=== PATIENT | female | born 1985 | race Caucasian/White ===

== ENCOUNTER 2024-06-25 13:05 | Outpatient (CLI) | payer OTHER ==
[2024-06-25] MEDS: LACTATED RINGERS 1,000 ML IV ONE (13:40)
[2024-06-25 14:34] VITALS: BP 122/81; PULSE 93; RESP 20; TEMP 97.6
[2024-06-25 14:48] LABS: Influenza A Detected (Not Detectd); Influenza B Not Detected (Not Detectd); RSV Not Detected (Not Detectd)
--- NOTE | 2024-06-25 14:53 | US ---
EXAMINATION TYPE: US OB limited DATE OF EXAM: 06/25/2024 COMPARISON: NONE CLINICAL INDICATION: Female, 38 years old with history of position and r/o adruption.; Hx aldo nal placenta per patient TECHNIQUE:: Transabdominal (TA) FINDINGS: GESTATIONAL AGE / DATING Physician Established: (36 weeks/2 days) EDC: 07/21/2024 No growth performed on today?s study per ordering physician SURVEY PLACENTA: Posterior right lateral PREVIA: Marginal Ultrasound evidence of abruption? No CERVICAL LENGTH (transabdominal: norm > 3.0cm): 3.2 cm PRESENTATION: Vertex HEART RATE: 130 bpm RHYTHM: Normal IMPRESSION: Posterior right lateral placenta with marginal previa. No evidence for placental abruptio n. [facility], , 06/25/2024 2:51 PM
== END 2024-06-25 15:20 | disposition home or self-care (01) ==
LOC: FBPOP 13:05
PROVIDERS: ATTEND Obstetrics & Gynecology
DX: Z53.9 Procedure and treatment not carried out, unspecified reason (principal)
CPT/HCPCS: 59025; 96360; 96361; 87636; 76815; G0463; 99214

== ENCOUNTER 2024-07-02 10:06 | Inpatient (IN) | payer OTHER ==
--- NOTE | 2024-07-02 11:18 | XR ---
EXAMINATION TYPE: XR chest 2V DATE OF EXAM: 07/02/2024 11:12 AM COMPARISON: None. CLINICAL INDICATION: Female, 38 years old with history of Cough,coughing, congestion, influenza A pos itive, 8 months , shielded TECHNIQUE: XR chest 2V view(s) obtained. FINDINGS: The heart size is normal. The pulmonary vasculature is normal. The lungs are clear. IMPRESSION: 1. No acute pulmonary process. [facility], , 07/02/2024 11:15 AM
[2024-07-02] MEDS ORDERED: METHYLERGONOVINE 0.2 MG/ML 1 ML AMP IM PRN (12:58)
[2024-07-02] MEDS ORDERED: miSOPROStoL 200 MCG TAB PO PRN (12:58)
[2024-07-02] MEDS ORDERED: CARBOPROST TROMETHAMINE 250 MCG/ML 1 ML AMP IM PRN (12:58)
[2024-07-02] MEDS ORDERED: TRANEXAMIC 1,000 MG/100ML-NACL 1,000 MG in EMPTY BAG 1 BAG IV PRN (12:58)
[2024-07-02] MEDS ORDERED: OXYTOCIN 10 UNIT/ML 1 ML VIAL IM PRN (12:58)
[2024-07-02] MEDS ORDERED: OXYTOCIN 30 UNITS/500 ML NS 30 UNIT in SALINE 1 500ML.BAG IV SCH (13:00)
[2024-07-02 13:13] LABS: Basophils % (A) 0 %; Eosinophils # (A) 0.1 k/uL (0-0.7); Eosinophils % (A) 0 %; HCT 37.6 % (34.0-46.0); HGB 12.7 gm/dL (11.4-16.0); Lymphocytes # (A) 1.2 k/uL (1.0-4.8); Lymphocytes % (A) 6 %; MCH 28.1 pg (25.0-35.0); MCHC 33.8 g/dL (31.0-37.0); MCV 83.3 fL (80.0-100.0); Mean Platelet Volume 9.5; Monocytes # (A) 0.9 k/uL (0-1.0); Monocytes % (A) 4 %; Neutrophils # (A) 19.6 k/uL (1.3-7.7); Neutrophils % (A) 89 %; Platelet Count 368 k/uL (150-450); Poikilocytosis Slight; RBC 4.51 m/uL (3.80-5.40)
[2024-07-02] MEDS: CITRIC ACID-SODIUM CITRATE 15 ML CUP PO ONE (13:13)
[2024-07-02] MEDS: LACTATED RINGERS 1,000 ML IV SCH ×2 (13:13→22:24)
[2024-07-02] MEDS ORDERED: ONDANSETRON 4 MG/2 ML VIAL ONE (13:34)
[2024-07-02] MEDS ORDERED: PHENYLEPHRINE-0.9% NACL SYG 1,000 MCG/10 ML SYRINGE ONE (13:34)
[2024-07-02] MEDS ORDERED: OXYTOCIN 30 UNITS/500 ML NS BAG IV ONE (13:34)
[2024-07-02] MEDS ORDERED: MORPHINE SULFATE (PF) 0.3 MG/0.3 ML SYR ONE (13:34)
--- NOTE | 2024-07-02 14:21 | P.OP ---
Date of Procedure: 07/02/24 Preoperative Diagnosis: IUP at 37-2/7 weeks, marginal placenta previa, spontaneous rupture membranes Postoperative Diagnosis: Same Procedure(s) Performed: Primary low-transverse section Anesthesia: spinal Surgeon: Odilia Garcia [facility] Pre Need Consultant #1: Norma Tillman Estimated Blood Loss (ml): 793 IV fluids (ml): 800 Urine output (ml): 100 (Yellow, clear) Pathology: other (Placenta) Condition: stable Disposition: observation Indications for Procedure: Spontaneous rupture of membranes with known placenta previa Operative Findings: Male infant delivered at 1354, weight of 6 pounds 13 ounces Description of Procedure: The patient was prepped and draped in the usual fashion after spinal anesthesia was administered by anesthesia department. A Pfannenstiel incision was made and extended of the abdominal cavity without difficulty. The bladder peritoneum was elevated and incised and reflected distally. A 2 cm incision was made in the transverse plane of the lower uterine segment to enter the uterus at which time clear fluid was noted. The incision was extended in both directions using the bandage scissors. The head was encountered within the field and delivered up and through the incision where the nose and mouth were thoroughly suctioned. Remainder of the infant was delivered onto the surgical field where the cord was doubly clamped, cut, and the was passed for resuscitative measures with weight above. The placenta was delivered manually, intact, and was grossly normal with a grossly normal three-vessel cord. The uterus was exteriorized and the interior cavity of the uterus swept of any remaining placental and membranous fragments with a laparotomy sponge. The margins of the incision were grasped with Allis clamps and the incision closed in 2 layers. First layer was a running locking layer of 0 Vicryl from margin to margin followed by a second layer of imbricating 0 Vicryl from margin to margin. Any small points of bleeding were then made hemostatic with the Bovie. Once hemostasis was achieved, the posterior cul-de-sac was suctioned with a guard and the uterine and ovarian findings are as noted above. The uterus was replaced within the abdominal cavity and the gutters swept of any remaining blood fluid or clot. Small amount of bleeding was noted on the left-hand side of the uterine incision therefore a xzajjm-mz-djman suture was used to obtain hemostasis. The incision was again reexamined and hemostasis was noted to be excellent. Once hemostasis was achieved the parietal peritoneum was loosely reapproximated. The layer of muscles were examined and made hemostatic with the Bovie. Attention was then turned to the fascia which was closed with 0 Vicryl from 1 lateral edge to the other in a running fashion. The subcutaneous tissues were irrigated, made hemostatic with the Bovie, and reapproximated with a running stitch of 30 . The skin was reapproximated with 4-0 Vicryl. Estimated blood loss for the case was approximately 793 mL. All sponge instrument and needle counts are correct. There were no complications. The patient tolerated the procedure well and proceeded to the recovery room in stable condition. Both mother and infant are resting comfortably in recovery.
[2024-07-02] MEDS ORDERED: SIMETHICONE 80 MG CHEWABLE PO PRN (16:38)
[2024-07-02] MEDS ORDERED: ONDANSETRON 4 MG/2 ML VIAL IVP PRN (16:38)
[2024-07-02] MEDS ORDERED: METOCLOPRAMIDE 5 MG/ML 2 ML VIAL IVP PRN (16:38)
[2024-07-02] MEDS ORDERED: diphenhydrAMINE 25 MG CAP PO PRN (16:38)
[2024-07-02] MEDS ORDERED: NALOXONE 0.4 MG/ML 1 ML VIAL IV PRN (16:38)
[2024-07-02] MEDS ORDERED: ZOLPIDEM 5 MG TAB PO PRN (16:38)
[2024-07-02] MEDS ORDERED: diphenhydrAMINE 50 MG/ML 1 ML VIAL IVP PRN ×2 (16:38)
[2024-07-02] MEDS ORDERED: diphenhydrAMINE 50 MG CAP PO PRN (16:38)
[2024-07-02] MEDS: SENNOSIDES-DOCUSATE SODIUM 1 EACH TAB PO SCH (20:17)
[2024-07-02] MEDS: ACETAMINOPHEN IV (For NPO) 1,000 MG in EMPTY BAG 1 BAG IVPB ONE (20:18)
[2024-07-02] MEDS: ACETAMINOPHEN TAB 500 MG TAB PO SCH (20:19)
[2024-07-03] MEDS: IBUPROFEN 800 MG TAB PO SCH (00:01)
[2024-07-03] MEDS: ACETAMINOPHEN TAB 500 MG TAB PO SCH (03:56)
[2024-07-03 06:45] LABS: Basophils % (A) 0 %; Eosinophils # (A) 0.1 k/uL (0-0.7); Eosinophils % (A) 0 %; HCT 35.1 % (34.0-46.0); HGB 11.6 gm/dL (11.4-16.0); Lymphocytes # (A) 2.3 k/uL (1.0-4.8); Lymphocytes % (A) 12 %; MCH 27.7 pg (25.0-35.0); Mean Platelet Volume 9.5; Monocytes % (A) 5 %; Neutrophils # (A) 15.6 k/uL (1.3-7.7); Neutrophils % (A) 81 %; Platelet Count 360 k/uL (150-450); Poikilocytosis Slight; RBC 4.17 m/uL (3.80-5.40); WBC 19.4 k/uL (3.8-10.6)
[2024-07-03] MEDS: FLUoxetine HCL 20 MG CAP PO SCH (08:32)
[2024-07-03] MEDS: PRENATAL VIT-IRON-FOLIC ACID 1 EACH TABLET PO SCH (08:32)
--- NOTE | 2024-07-03 08:42 | P.PNOBGPC ---
Subjective - Subjective Principal diagnosis: Postop day 1, primary Interval history: Patient is doing well postoperatively. She is ambulating and voiding without difficulty. Lochia is minimal. Breast-feeding is going well. Pain is well- controlled Patient reports: Reports appetite normal, Reports voiding normally, Reports pain well controlled, Reports ambulating normally [place]: doing well, nursing well Objective - Vital Signs Latest vital signs: Vital Signs Temp Pulse Resp BP Pulse Ox 07/03/24 07:53 97.9 F 79 18 121/73 96 07/03/24 00:11 97.3 F L 71 18 133/78 97 07/02/24 20:15 97.9 F 77 16 120/75 96 07/02/24 18:49 98.0 F 87 20 128/76 99 07/02/24 16:23 97.8 F 67 18 121/57 98 07/02/24 15:53 93 18 119/73 99 07/02/24 15:25 76 18 117/58 99 07/02/24 15:23 76 18 117/58 99 07/02/24 15:10 78 18 116/58 98 07/02/24 14:55 82 20 129/64 99 07/02/24 14:40 86 18 131/74 99 07/02/24 14:25 97.8 F 86 20 124/60 100 07/02/24 13:00 98.0 F 90 18 120/69 97 07/02/24 10:43 97.6 F 90 18 137/65 98 Intake and Output 07/02/24 07/03/24 07/03/24 22:59 06:59 14:59 Intake Total 240 2000 Output Total 350 200 400 Balance -110 1800 -400 Intake: IV 2000 Oral 240 Output: Urine 350 200 400 Straight 200 Uretheral (Mauricio) 200 Other: Voiding Method Indwelling Catheter # Voids 0 1 - Exam Extremities: Present: edema Abdomen: Present: normal appearance, soft Incision: Present: normal, dry, intact Uterus: Present: normal, firm - Labs Labs: Abnormal Lab Results - Last 24 Hours (Table) 07/02/24 07/03/24 Range/Units 13:00 06:23 WBC 22.0 H 19.4 H (3.8-10.6) k/uL Neutrophils # 19.6 H 15.6 H (1.3-7.7) k/uL Assessment and Plan (1) Term Current Visit: Yes Status: Acute Code(s): Z34.90 - ENCNTR FOR SUPRVSN OF NORMAL , UNSP, UNSP TRIMESTER SNOMED Code(s): 04863009 (2) Marginal placenta previa Current Visit: Yes Status: Acute Code(s): O44.20 - PARTIAL PLACENTA PREVIA NOS OR WITHOUT HEMOR, UNSP TRIMESTER SNOMED Code(s): 53210490 (3) Spontaneous rupture of membranes Current Visit: Yes Status: Acute Code(s): DYC5529 - SNOMED Code(s): 143011512 Plan: Patient is doing well postoperatively. Plan to continue routine postoperative care Anticipate charge home tomorrow
--- NOTE | 2024-07-03 09:22 | P.PN ---
Progress Note - Text Progress Note Date: 07/03/24 Postoperative day 1 status post section under spinal anesthesia, and intrathecal morphine given for postoperative analgesia, patient doing well, there is no anesthesia related complications, Patient had no headache, vital signs stable , Assessment and plan= postop day 1 status post , doing well there is no anesthesia related complication.
[2024-07-03] MEDS ORDERED: IBUPROFEN 800 MG TAB PO SCH (16:00)
[2024-07-04] MEDS: guaiFENesin SYRUP 100MG/5ML 200 MG/10 ML CUP PO PRN (08:28)
--- NOTE | 2024-07-04 08:36 | P.PNOBGPC ---
Subjective - Subjective Principal diagnosis: Postop day 2, primary Interval history: Patient is doing well postoperatively. She continues to complain of nonproductive cough, sinus pain. She is breast-feeding without difficulty but states her cough is "violent" and waking the baby. She denies fevers or chills. She is status post flu a diagnosed 9 days ago. Pain is well-controlled. Patient reports: Reports appetite normal, Reports voiding normally, Reports pain well controlled, Reports other (Continued cough, normal pulse ox at 97%.) [place]: doing well Objective - Vital Signs Latest vital signs: Vital Signs Temp Pulse Resp BP Pulse Ox 07/03/24 23:06 97.5 F L 66 17 123/74 96 07/03/24 16:00 97.5 F L 74 16 112/77 Intake and Output 07/03/24 07/04/24 07/04/24 22:59 06:59 14:59 Other: # Voids 2 - Exam Extremities: Present: normal Abdomen: Present: normal appearance, soft Incision: Present: normal, dry, intact Uterus: Present: normal, firm Assessment and Plan (1) Term Current Visit: Yes Status: Acute Code(s): Z34.90 - ENCNTR FOR SUPRVSN OF NORMAL , UNSP, UNSP TRIMESTER SNOMED Code(s): 89298248 (2) Marginal placenta previa Current Visit: Yes Status: Acute Code(s): O44.20 - PARTIAL PLACENTA PREVIA NOS OR WITHOUT HEMOR, UNSP TRIMESTER SNOMED Code(s): 34681085 (3) Spontaneous rupture of membranes Current Visit: Yes Status: Acute Code(s): DJV9760 - SNOMED Code(s): 66846 4005 (4) Status post primary low transverse section Current Visit: Yes Status: Acute Code(s): Z98.891 - HISTORY OF UTERINE SCAR FROM PREVIOUS SURGERY SNOMED Code(s): 187397381 Plan: Patient is doing well postoperatively. Continued cough and congestion. Will begin Robitussin for cough, Flonase for congestion, given 9 days of continued cough will start azithromycin.
[2024-07-04 08:45] VITALS: TEMP 98.1
[2024-07-04] MEDS: AZITHROMYCIN 500 MG TAB PO SCH (09:31)
[2024-07-04] MEDS: FLUTICASONE NASAL 50MCG/SPRAY 16GM BTL EA NOSTRIL SCH (09:31)
--- NOTE | 2024-07-04 12:55 | P.DS ---
Providers Date of admission: 07/02/24 12:57 Expected date of discharge: 07/04/24 Attending physician: Odilia Garcia Primary care physician: Stated None - Discharge Diagnosis(es) (1) Term Current Visit: Yes Status: Acute (2) Marginal placenta previa Current Visit: Yes Status: Acute (3) Spontaneous rupture of membranes Current Visit: Yes Status: Acute (4) Status post primary low transverse section Current Visit: Yes Status: Acute Hospital Course: 38 yo that presented to labor and delivery on 07/02 with complaints of spontaneous rupture membranes. Patient had been receiving routine care complicated by a placenta previa. Estimated due date of 07/02. Patient is noting good movement. She was diagnosed with influenza A approximately 1 week prior to this admission. Patient is continue to struggle with a chronic cough and drainage. On admission patient had noted spontaneous rupture of membranes after a coughing episode, patient was taken back to the operating suite where primary low- transverse section was performed secondary to placenta previa. Patient delivered a viable male infant at 1354 on 07/02, weight of 6 pounds 13 ounces, Apgars of 8 and 9 at 1 and 5 minutes respectively. Patient's postoperative course has been complicated by upper respiratory illness. Patient has noted continued cough, drainage. Patient was given Robitussin, Flonase, azithromycin. Patient has had normal vitals throughout her stay. Hemoglobin is noted to be stable Patient would like discharge home. Patient Condition at Discharge: Good Plan - Discharge Summary New Discharge Prescriptions: No Action 114/Iron A-G/Folate 1 [Prenate Elite Tablet] 1 each PO DAILY FLUoxetine HCL 20 mg PO DAILY Discharge Medication List FLUoxetine HCL 20 mg PO DAILY 06/25/24 [History] 114/Iron A-G/Folate 1 [Prenate Elite Tablet] 1 each PO DAILY 06/25/24 [History] Follow up Appointment(s)/Referral(s): Odilia Garcia DO [Doctor of Osteopathic Medicine] - 07/17/24 11:15 am (Post Appointment 08-14-2024 at 2:15pm) Patient Instructions/Handouts: (DC), (GEN) Activity/Diet/Wound Care/Special Instructions: Tenp-mjj-sekfftx ibuprofen 600 mg or 3 tablets every 6 hours as needed for pain. Patient is to follow-up in 2 weeks for routine postoperative check. Prescription for azithromycin to complete her 5-day course. Flonase twice daily as needed. Discharge Disposition: HOME SELF-CARE
[2024-07-04 16:13] VITALS: BP 125/85; PULSE 95; RESP 14
--- NOTE | 2024-07-06 08:09 | P.HPOB ---
History of Present Illness H&P Date: 07/02/24 Chief Complaint: Term , marginal previa, spontaneous rupture membranes 38-year-old 1 para 0 at 37-2/7 weeks EDC of 07/14 that presents to labor and delivery with complaints of possible rupture membranes. Rupture membranes was confirmed in OB triage. Patient has been receiving routine care which has been complicated by a marginal placenta previa. Patient states she has been struggling with a chronic cough for approximately 1 week now, negative chest x-ray in OB triage. she denies fevers or chills On blood work this patient has a blood type of A+, rubella status immune, hepatitis B surface engine negative, HIV negative, RPR is nonreactive Review of Systems Constitutional: Denies chills, Denies fatigue, Denies fever Ears, nose, mouth and throat: Denies headache Cardiovascular: Reports leg edema Respiratory: Denies dyspnea Gastrointestinal: Denies constipation, Denies diarrhea, Denies nausea, Denies vomiting Genitourinary: Reports Past Medical History History of Any Multi-Drug Resistant Organisms: None Reported Smoking Status: Former smoker Medications and Allergies Home Medications Medication Instructions Recorded Confirmed Type FLUoxetine HCL 20 mg PO DAILY 06/25/24 07/02/24 History 114/Iron A-G/Folate 1 1 each PO DAILY 06/25/24 07/02/24 History [Prenate Elite Tablet] Allergies Allergy/AdvReac Type Severity Reaction Status Date / Time No Known Allergies Allergy Verified 07/02/24 10:43 Exam Osteopathic Statement: *. No significant issues noted on an osteopathic structural exam other than those noted in the History and Physical/Consult. Intake and Output 07/01/24 07/02/24 07/02/24 22:59 06:59 14:59 Other: Weight 79.832 kg Targeted physical exam was performed this date General Is well-nourished well- developed female in no acute distress, breathing is nonlabored, abdomen is gravid, cervical exam is deferred, heart tones are noted to be category 1 and she is not angelic. Results Result Diagrams: 07/02/24 13:00 Assessment and Plan (1) Term Current Visit: Yes Status: Acute Code(s): Z34.90 - ENCNTR FOR SUPRVSN OF NORMAL , UNSP, UNSP TRIMESTER SNOMED Code(s): 38723258 (2) Marginal placenta previa Current Visit: Yes Status: Acute Code(s): O44.20 - PARTIAL PLACENTA PREVIA NOS OR WITHOUT HEMOR, UNSP TRIMESTER SNOMED Code(s): 02191044 (3) Spontaneous rupture of membranes Current Visit: Yes Status: Acute Code(s): EBX4265 - SNOMED Code(s): 188336352 Plan: 38-year-old 1 para 0 at 37-2/7 weeks presents with spontaneous rupture membranes and known marginal placenta previa. Patient was counseled on need to proceed with primary . Patient states understanding. Anesthesia was notified. Procedure was reviewed and informed consent is obtained.
== END 2024-07-04 16:40 | disposition home or self-care (01) | DRG 540 ==
LOC: FBPOP 10:06 → 4FBP 12:57
PROVIDERS: ADMIT Obstetrics & Gynecology Obstetrics; ATTEND Obstetrics & Gynecology Obstetrics
PROC: 10D00Z1 Extraction of Products of Conception, Low, Open Approach (ICD-10-PCS; principal; 2024-07-02 14:00)
DX: O44.23 Partial placenta previa NOS or without hemorrhage, third trimester (principal); O99.52 Diseases of the respiratory system complicating childbirth; J10.1 Influenza due to other identified influenza virus with other respiratory manifestations; Z3A.37 37 weeks gestation of pregnancy; Z37.0 Single live birth
CPT/HCPCS: 59025; 71046; 85025; 86850; 86900; 86901; 99213